=== PATIENT | male | born 1970 | race Caucasian/White ===

== ENCOUNTER 2018-05-14 18:47 | Emergency (ER) | payer MEDICAID, OTHER ==
[~2018-05-14] VITALS: Ht 177.8 cm; Wt 79.5 kg
[~2018-05-14 18:47] MED LIST: TRAM50TA4 PO
[2018-05-14 20:29] VITALS: BP 160/90
== END 2018-05-14 20:34 | disposition home or self-care (01) ==
LOC: EMS 18:48
DX: S62.324A Displaced fracture of shaft of fourth metacarpal bone, right hand, initial encounter for closed fracture (principal); I10 Essential (primary) hypertension; F15.90 Other stimulant use, unspecified, uncomplicated; F12.90 Cannabis use, unspecified, uncomplicated; Z98.890 Other specified postprocedural states; W22.01XA Walked into wall, initial encounter; Y93.89 Activity, other specified; Y92.89 Other specified places as the place of occurrence of the external cause; Y99.8 Other external cause status

== ENCOUNTER 2019-01-28 10:08 | Emergency (ER) | payer MEDICAID | END 2019-01-28 11:03 | disposition left against medical advice (07) | LOC: EMS 10:10 | DX: Z02.89 Encounter for other administrative examinations (principal); Z53.21 Procedure and treatment not carried out due to patient leaving prior to being seen by health care provider ==

== ENCOUNTER 2019-02-01 11:55 | Emergency (ER) | payer MEDICAID ==
[~2019-02-01] VITALS: Ht 180.3 cm; Wt 79.5 kg
[2019-02-01 12:46] VITALS: BP 138/92
== END 2019-02-01 13:36 | disposition home or self-care (01) ==
LOC: EMS 11:55
DX: F10.20 Alcohol dependence, uncomplicated (principal); I10 Essential (primary) hypertension; F12.90 Cannabis use, unspecified, uncomplicated; F15.90 Other stimulant use, unspecified, uncomplicated; Y90.9 Presence of alcohol in blood, level not specified